=== PATIENT | female | born 1970 | race Caucasian/White ===

== ENCOUNTER → 2018-02-23 10:26 | Outpatient (CLI) | payer OTHER, SELFPAY | PROVIDERS: PCP Family Medicine; Visit Provider Obstetrics & Gynecology | DX: R19.00 Intra-abdominal and pelvic swelling, mass and lump, unspecified site (principal) | CPT/HCPCS: 36415; 86316 ==

== ENCOUNTER → 2018-03-02 14:35 | Outpatient (CLI) | payer OTHER, SELFPAY ==
--- NOTE | 2018-03-02 14:37 | MM_ITS ---
MM Dig SC mamm implant BI CAD CAD Screening COMPARISON: None, this is baseline INDICATION: There is no personal or family history of breast cancer. Patient has bilateral breast implants. TECHNIQUE: Standard CC and MLO images were obtained. R2 CAD reviewed. FINDINGS: Moderate diffuse heterogenic breast densities noted bilaterally. The implants appear intact with no evidence of leakage. There is no suspicious lesion and there are no suspicious microcalcifications. IMPRESSION: Moderate breast density with no suspicious lesion seen BI-RADS Category: 2 Benign Finding(s) RECOMMENDED FOLLOW-UP: 1YR - 1 YEAR FOLLOW-UP (A letter has been sent to the patient regarding results of the study.)
== END ==
PROVIDERS: PCP Family Medicine; Visit Provider Obstetrics & Gynecology
DX: Z12.31 Encounter for screening mammogram for malignant neoplasm of breast (principal)
CPT/HCPCS: 77067

== ENCOUNTER → 2018-04-16 09:47 | Outpatient (CLI) | payer OTHER, SELFPAY ==
[2018-04-16 09:49] LABS: Microscopic, Urine URINE MICROSCOPIC (MICROSCOPIC)
[2018-04-16 10:40] LABS: Basophils # 0.1 K/mm3 (0-0.2); Basophils % 1.4 % (0.1-2.0); Eosinophils # 0.1 K/mm3 (0.0-0.4); Eosinophils % 1.6 % (0.1-12.0); Hematocrit 39.8 % (37.0-47.0); Hemoglobin 12.9 g/dL (12.2-16.2); Lymphocytes # 1.5 K/mm3 (0.7-4.5); Lymphocytes % 25.6 % (10-50); Mean Corpuscular HGB Conc 32.4 g/dL (31.8-35.4); Mean Corpuscular Hemoglobin 29.4 pg (27.0-31.2); Mean Corpuscular Volume 90.7 fl (81-99); Mean Platelet Volume 6.8 fl (7.4-10.4); Monocytes # 0.6 K/mm3 (0.1-1.0); Monocytes % 10.6 % (1.7-9.3); Neutrophils # 3.6 K/mm3 (1.8-7.8); Neutrophils % 60.8 % (37.0-80.0); Platelet Count 301 K/mm3 (142-424); Red Blood Count 4.39 M/mm3 (4.20-5.40); Red Cell Distribution Width 13.2 % (11.5-17.5); White Blood Count 5.8 K/mm3 (4.8-10.8)
[2018-04-16 10:59] LABS: Appearance,Urine CLEAR (Clear); Bilirubin,Urine Negative (Negative); Blood, Urine TRACE-L (Negative); Color,Urine YELLOW (Yellow); Glucose,Urine (UA) Negative (Negative); Ketones,Urine Negative (Negative); Leukocyte Esterase,Urine Negative (Negative); Nitrate,Urine Negative (Negative); PH,Urine 7.5 (5.0-8.5); Protein,Urine Negative (Negative); Specific Gravity, Urine <= 1.005 (1.005-1.030); Urobilinogen,Urine 0.2 EU/dl (0.2)
[2018-04-16 11:20] LABS: Bacteria,Urine Trace /lpf; RBC,Urine Occasional #/hpf (0-3); Squamous Epithelial Cell,Urine Occasional #/hpf (0-5); Urine Pregnancy, HCG Qual. Negative (Negative)
[2018-04-16 12:59] LABS: Alanine Aminotransferase 20 U/L (12-78); Albumin Level 3.6 gm/dL (3.4-5.0); Albumin/Globulin Ratio 1.1 (1.1-1.8); Alkaline Phosphatase 60 U/L (46-116); Anion Gap 11.5 mEq/L (5-15); Aspartate Amino Transferase 12 U/L (15-37); Bilirubin,Total 0.5 mg/dL (0.2-1.0); Blood Urea Nitrogen 14 mg/dL (7-18); Calcium 8.7 mg/dL (8.5-10.1); Carbon Dioxide 29 mmol/L (21.0-32.0); Chloride 104 mmol/L (98-107); Creatinine,Serum 0.69 mg/dL (0.55-1.02); Estimated Glomerular Filt Rate 92 ml/min (>60); GFR (African American) 111 ML/MIN (>60); Globulin 3.2 gm/dl (1.3-3.2); Glucose 75 mg/dL (74-106); Potassium 4.5 mmoL/L (3.5-5.1); Sodium 140 mmol/L (136-145); Total Protein,Serum 6.8 gm/dL (6.4-8.2)
== END ==
PROVIDERS: Visit Provider Obstetrics & Gynecology
DX: Z01.818 Encounter for other preprocedural examination (principal); N93.8 Other specified abnormal uterine and vaginal bleeding; D25.9 Leiomyoma of uterus, unspecified; R19.00 Intra-abdominal and pelvic swelling, mass and lump, unspecified site
CPT/HCPCS: 36415; 80053; 81001; 81025; 85025

== ENCOUNTER 2018-04-21 06:06 | Inpatient (IN) ==
--- NOTE | 2018-04-21 06:42 | Progress Note ---
[facility] Anesthesia Checklist - Patient Identification Patient Identification: Arm Band, Verbal (Name & ) - Structural Data Admitted From: Home Planned Operative Procedure/s: JANICE, BSO Consent for Planned Operative Procedure(s) Verified: Yes Verified Documents: Surgical Consent, History and Physical - NPO Status Verified Time NPO: 00:00 - Chart Verification Results Verified: CBC, BMP, HCG - Additional verifications Patient : No Anesthesia Reactions: No - Airway Assessment C-Spine Mobility Assessed: Yes TMJ Mobility Assessed: Yes Dentition: Good Dentition - Neurological Assessment Level of Consciousness: Awake Hx Seizures: No Numbness or tingling in extremities: No - Anesthesia Plan Anesthesia Risk discussed: Yes Anesthesia Plan: Verified ASA Class: I Anesthesia Type: General [facility] History I have reviewed the patient's past medical history: Yes Medical History: Reports:: Kidney Stones Denies:: Cancer, Diabetes Mellitus Type 1, Diabetes Mellitus Type 2, Internal Pacemaker, MRSA, Seizures Other Medical History: Reports: Other (Obesity,). Denies: Blood Transfusion R eaction Other Surgeries: Yes: Other (Breast augmentation). No: Pacemaker Amputation: No Fractures: No - *Social History Educational Level: Attended College Smoking Status: Never smoker Alcohol Intake: never Alcohol Intake Frequency:: a few times a week Substance Use Type: denies use Occupational Status: employed Housing: house Household Members: spouse - Psychiatric History Expresses thoughts of harming self/others: None Suicide Plan Description: No Plan *Family Hx:: Coronary Artery Disease, Hypertension, Stroke
--- NOTE | 2018-04-21 09:38 | Operative Note ---
Date of procedure: 04/21/18 Pre-op Diagnosis:: 1. Dysfunctional uterine bleeding. 2. Leiomyomata uteri. Post-op Diagnosis:: 1. Dysfunctional uterine bleeding. 2. Leiomyomata uteri. Procedure performed:: Total abdominal hysterectomy and bilateral salpingectomies. Surgeon:: Darrel Staton MD Pulp Operator(s):: STACI Hensley PARTNER CCO:: Vish Nielson Anesthesia: GETA Estimated blood loss (mL): 300 Operative findings:: Leiomyomata uteri Operative note:: After the patient was prepped and draped in usual fashion and general anesthesia was administered, a low Pfannenstiel incision was made across the midline, and the fat and fascia were in the usual fashion, bleeders being clamped and coagulated along the way. The peritoneum was entered with Metzenbaum scissors, and extended above and below. The upper abdomen was explored and found to be normal. A self-retaining Loraine retractor with bladder blade was placed. The uterus was brought up out of the pelvis. It was significantly enlarged, and rife with multiple pedunculated and intramural leiomyomata. This distorted the adnexa, but both ovaries appeared normal except for small (less than 2 cm) hemorrhagic cysts on the distal pole of each ovary. The round ligament on either side was Sarah clamped, cut, and Senthil suture with #1 Vicryl, and the bladder peritoneum was sharply and bluntly dissected free. The ovarian pedicles were crossclamped and cut, thus initially leaving both adnexa in situ. These pedicles were Senthil sutured, and then free tied with #1 Vicryl. The uterine vessels, the cardinal and uterosacral ligaments were individually, bilaterally, Senthil clamped, cut, and Senthil suture with #1 Vicryl. Visualizati on was difficult because of the size and distortion of the uterus, and it was elected to remove the body of the uterus from the cervix, which was done with a scalpel. There was no undue bleeding from this part of the procedure. The cervix was then grasped with Juan clamps, and the vagina was entered anteriorly with a knife, with the cervix being excised with Jose F scissors. Juan clamps were used to tent up the vaginal cuff, which was closed with a running locked suture of #1 Vicryl. Irrigation was carried out, and there was no undue bleeding or other pathology. Each tube was grasped with a [employer] clamp, and the mesosalpinx on each side was crossclamped with a Verenice clamp, and the tube excised with Metzenbaum scissors. These pedicles were Senthil sutured with 2-0 Vicryl. There was no undue bleeding. The bilateral small hemorrhagic ovarian cyst were punctured and oversewn with 3-0 Vicryl. Both ovaries remain in situ. Interceed was placed over each ovary to obviate the formation of adhesions. The peritoneum was then grasped with 3 Verenice clamps, and closed with a running semi-locked suture of 0 Vicryl. The muscle was approximated with a running unlocked suture of 2-0 Vicryl. In the upper portion of the rectus muscle repair, small defect was noted. Gelfoam was placed within the defect to enhance the repair, which was subsequently accomplished. The fascia was closed with a running lock suture of #1 Vicryl. The subcutaneous fat and Soraya's fascia were closed with a running unlocked suture of 2-0 Vicryl. The skin was closed with a subcuticular suture of 3-0 Vicryl, and appropriately dressed. The urine was clear in the Coyle catheter. The sponge and needle counts correct. Estimated blood loss was 300 cc. The patient tolerated the procedure well, was taken to PACU in excellent condition. She will be admitted postoperatively. Condition: stable Disposition: PACU Specimens:: 1. Uterus (supracervical). 2. Cervix. 3. Bilateral fallopian tubes. Complications:: None
--- NOTE | 2018-04-21 09:48 | Progress Note ---
[facility] Anesthesia Record Part II Discharge Time: 10:15 Destination: 2nd floor PACU nurse assessment reviewed?: Yes Patient Condition:: Good Anesthesia Complications:: None
--- NOTE | 2018-04-21 09:48 | Progress Note ---
[facility] Anesthesia Record Part I Intake, IV Amount: 1,700 Estimated blood loss (mL): 300 Urine output (mL): 200 Blood Pressure: 142/72 SaO2: 95 Pulse Rate: 63 Respiratory Rate: 16 Temperature: 97.5 F Patient is:: Drowsy, Stable Stable to PACU at:: 09:45
[2018-04-21 11:52] LABS: Hematocrit 35.2 % (37.0-47.0); Hemoglobin 11.4 g/dL (12.2-16.2)
--- NOTE | 2018-04-21 11:57 | Progress Note ---
Internal Medicine - PN: Subj *Date: 04/21/18 *Time: 11:57 Interval history: This is day of surgery. The patient is afebrile. Vital signs stable. Wound clean. Abdomen soft. Surgery has been explained to the patient. Impression: Stable. Exam Vital signs and Labs for Last 24 Hours: Temp Pulse Resp BP Pulse Ox 97.8 F 60 18 115/64 97 04/21/18 10:20 04/21/18 10:20 04/21/18 11:37 04/21/18 10:20 04/21/18 10:20 Laboratory Results - last 24 hr 04/21/18 11:23: Hgb 11.4 L, Hct 35.2 L I & O for Last 24 hours: Intake & Output 04/18/18 04/19/18 04/20/18 04/21/18 11:59 11:59 11:59 11:59 Intake Total 1825 / 1825 Output Total 100 / 100 Balance 1725 / 1725 Weight 180 lb
--- NOTE | 2018-04-21 13:21 | Pharmacy Consult Notes ---
[facility] Pharmacy VTE Monitoring - Patient Demographics Admission date: 04/21/18 Report Date: 04/21/18 Time: 13:21 Allergies/Adverse Reactions: Patient Allergies ibuprofen Adverse Reaction (Verified 04/21/18 11:26) Height: 1.6 m Weight: 81.647 kg - VTE Risk Labs: VTE Related Lab Results Hgb 11.4 g/dL (12.2-16.2) L 04/21/18 11:23 Hct 35.2 % (37.0-47.0) L 04/21/18 11:23 - Prophylaxis VTE Prophylaxis Ordered?: Yes Types of VTE Prophylaxis: IPCS Thigh High, Pharmacological Location of Applied Device: Bilateral Lower Extremeties Pharmacologic Type: Enoxaparin
--- NOTE | 2018-04-22 08:55 | Progress Note ---
Internal Medicine - PN: Subj *Date: 04/22/18 *Time: 08:54 Interval history: This is postop day #1. The patient is afebrile. Vital signs stable. Wound clean. Abdomen soft. Hemoglobin 11.4 g. She has had some difficulty with nausea, but her Coyle is out and she has voided well. I am going to keep her on clear liquids for now and ambulate today. Exam Vital signs and Labs for Last 24 Hours: Temp Pulse Resp BP Pulse Ox 97.8 F 73 16 112/73 98 04/22/18 02:55 04/22/18 02:55 04/22/18 02:55 04/22/18 02:55 04/22/18 04:55 Laboratory Results - last 24 hr 04/21/18 07:30: Urine Color Yellow, Urine Appearance Clear, Urine pH 6.5, Ur Specific [place] 1.010, Urine Protein Negative, Urine Glucose (UA) Negative, Urine Ketones Negative, Urine Blood Trace-i, Urine Nitrate Negative, Urine Bilirubin Negative, Urine Urobilinogen 0.2, Ur Leukocyte Esterase Negative, Urine RBC Occasional, Urine WBC None, Ur Squamous Epith Cells Occasional, Urine Bacteria Trace 04/21/18 11:23: Hgb 11.4 L, Hct 35.2 L I & O for Last 24 hours: Intake & Output 04/19/18 04/20/18 04/21/18 04/22/18 11:59 11:59 11:59 11:59 Intake Total 5 / 5 1107 / 1107 Output Total 300 / 300 800 / 800 Balance 1765 / 1765 307 / 307 Weight 180 lb 180 lb
--- NOTE | 2018-04-23 07:00 | Progress Note ---
Internal Medicine - PN: Subj *Date: 04/23/18 *Time: 06:56 Interval history: PO day #2: Pt is afebrile now, but had oral temp of 99.9 during the night..Tylenol administered. Since then has passed flatus and feels better..VS normal.Abdomen soft. Wound clean.Impression: resolving mild post-op ileus--will advance diet today. Exam Vital signs and Labs for Last 24 Hours: Temp Pulse Resp BP Pulse Ox 99.6 F 77 18 132/72 93 L 04/23/18 03:10 04/23/18 03:10 04/23/18 03:10 04/23/18 03:10 04/23/18 03:10 I & O for Last 24 hours: Intake & Output 04/20/18 04/21/18 04/22/18 04/23/18 11:59 11:59 11:59 11:59 Intake Total 2065 / 2065 1107 / 1107 4468 / 4468 Output Total 300 / 300 1050 / 1050 1350 / 1350 Balance 1765 / 1765 57 / 57 3118 / 3118 Weight 180 lb 180 lb
[2018-04-23 09:30] LABS: Basophils % 0.3 % (0.1-2.0); Eosinophils % 0.5 % (0.1-12.0); Hematocrit 28.7 % (37.0-47.0); Hemoglobin 9.3 g/dL (12.2-16.2); Lymphocytes # 1.3 K/mm3 (0.7-4.5); Lymphocytes % 17.6 % (10-50); Mean Corpuscular HGB Conc 32.3 g/dL (31.8-35.4); Mean Corpuscular Hemoglobin 29.4 pg (27.0-31.2); Mean Corpuscular Volume 91.2 fl (81-99); Mean Platelet Volume 7.7 fl (7.4-10.4); Monocytes # 0.6 K/mm3 (0.1-1.0); Monocytes % 7.9 % (1.7-9.3); Neutrophils # 5.3 K/mm3 (1.8-7.8); Neutrophils % 73.7 % (37.0-80.0); Platelet Count 244 K/mm3 (142-424); Red Blood Count 3.15 M/mm3 (4.20-5.40); Red Cell Distribution Width 13.2 % (11.5-17.5); White Blood Count 7.2 K/mm3 (4.8-10.8)
--- NOTE | 2018-04-24 06:29 | Progress Note ---
Internal Medicine - PN: Subj *Date: 04/24/18 *Time: 06:28 Interval history: This is postop day #3. The patient is afebrile. Her vital signs are stable. Wound clean. Abdomen soft. Passing flatus. Voiding well. She will be discharged today. Exam Vital signs and Labs for Last 24 Hours: Temp Pulse Resp BP Pulse Ox 98.9 F 65 16 130/75 94 L 04/24/18 03:15 04/24/18 03:15 04/24/18 03:15 04/24/18 03:15 04/24/18 03:15 Laboratory Results - last 24 hr 04/23/18 09:06: WBC 7.2, RBC 3.15 L, Hgb 9.3 L, Hct 28.7 L, MCV 91.2, MCH 29.4, MCHC 32.3, RDW 13.2, Plt Count 244, MPV 7.7, Neut % (Auto) 73.7, Lymph % (Auto) 17.6, [place] % (Auto) 7.9, Eos % (Auto) 0.5, Baso % (Auto) 0.3, Neut # (Auto) 5.3, Lymph # (Auto) 1.3, [place] # (Auto) 0.6, Eos # (Auto) 0.0, Baso # (Auto) 0.0 I & O for Last 24 hours: Intake & Output 04/21/18 04/22/18 04/23/18 04/24/18 11:59 11:59 11:59 11:59 Intake Total 5 / 2065 1107 / 1107 4468 / 4468 1345 / 1345 Output Total 300 / 300 1050 / 1050 2250 / 2250 1200 / 1200 Balance 1765 / 1765 57 / 57 2218 / 2218 145 / 145 Weight 180 lb 180 lb
--- NOTE | 2018-04-24 06:33 | Discharge Summary ---
General - General Admission date:: 04/21/18 Discharge date: 04/24/18 (This 47-year-old white female was admitted for definitive treatment of dysfunctional uterine bleeding and leiomyomata uteri. On the date of admission, she was taken to the operating room where she underwent a total abdominal hysterectomy and bilateral salpingectomies, without complications. Her ovaries remain in situ. , the patient is done well overall. She did experience a mild postop ileus on postop day #1, but this is now cleared and she remains afebrile. Her hemoglobin on admission was 12.9 g; post operatively it is 9.9 g, but she is clinically stable. She is eating and ambulating, and passing flatus. Her wound is clean. Her abdomen is soft. She is discharged home on third postoperative day on Toradol 10 mg p.o. every 6 hours as needed pain (#20). She is given appropriate instructions as to diet, exercise, and wound care, and she is to return to the office in 2 weeks for follow-up.) Objective Vital signs: Temp Pulse Resp BP Pulse Ox 98.9 F 65 16 130/75 94 L 04/24/18 03:15 04/24/18 03:15 04/24/18 03:15 04/24/18 03:15 04/24/18 03:15 Results Labs on day of discharge: Labs from last 24 hours 04/23/18 09:06 WBC 7.2 RBC 3.15 L Hgb 9.3 L Hct 28.7 L MCV 91.2 MCH 29.4 MCHC 32.3 RDW 13.2 Plt Count 244 MPV 7.7 Neut % (Auto) 73.7 Lymph % (Auto) 17.6 [place] % (Auto) 7.9 Eos % (Auto) 0.5 Baso % (Auto) 0.3 Neut # (Auto) 5.3 Lymph # (Auto) 1.3 [place] # (Auto) 0.6 Eos # (Auto) 0.0 Baso # (Auto) 0.0 Discharge Plan - Patient Discharge Instructions - Follow up Plan Home Medications: Home Medications Medication Instructions Recorded Confirmed Type No Known Home Medications 03/09/18 04/21/18 History Prescriptions/Medication Reconciliation: No Action No Known Home Medications
== END 2018-04-24 09:45 | disposition home or self-care (01) ==
LOC: OR 06:06 → OB 11:01
PROVIDERS: ADMIT Obstetrics & Gynecology; ATTEND Obstetrics & Gynecology

== ENCOUNTER → 2019-03-18 12:46 | Outpatient (CLI) | payer OTHER, SELFPAY ==
--- NOTE | 2019-03-18 12:53 | US_ITS ---
PROCEDURE: US TRANSVAGINAL CLINICAL INDICATION: ADNEXAL MASS, PELVIC PAIN Possible right ovarian cyst/mass COMPARISON: No exams were available for comparison FINDINGS: There are post hysterectomy changes. Right ovary is 2.2 x 1.3 cm and has an unremarkable appearance. The left ovary is enlarged with multiple cysts. The left ovary measures 6 x 4 cm. The largest cyst is 4.7 x 3.4 cm. No cul-de-sac fluid evident. No significant thickening of the cyst wall. No mural nodules demonstrated IMPRESSION: Cystic involvement of the left ovary with multiple cysts present the largest at 6 x 4 cm. Suggest follow-up to confirm resolution Dictated by: Attila Costa MD 03/19/2019 06:07 Electronically signed by Attila Costa MD in [facility] 03/19/2019 06:07
== END ==
PROVIDERS: PCP Family Medicine; Visit Provider Obstetrics & Gynecology
DX: R10.2 Pelvic and perineal pain (principal); N94.89 Other specified conditions associated with female genital organs and menstrual cycle
CPT/HCPCS: 76830

== ENCOUNTER → 2019-03-26 09:43 | Outpatient (CLI) | payer OTHER, SELFPAY ==
[2019-03-27 20:05] LABS: Cancer Antigen (CA) 125 4.5 U/mL (0.0-38.1)
== END ==
PROVIDERS: Visit Provider Obstetrics & Gynecology
DX: R10.2 Pelvic and perineal pain (principal)
CPT/HCPCS: 36415; 86316

== ENCOUNTER → 2019-04-01 09:05 | Outpatient (CLI) | payer OTHER, SELFPAY ==
--- NOTE | 2019-04-01 09:18 | MM_ITS ---
PROCEDURE: MM DIG SC MAMM IMPLANT BI CAD Patient Age:48Y CLINICAL INDICATION: screening mamm with implants 48-year-old. Bilateral breast implants, no hormones. No new complaints. Noncontributory family history COMPARISON: SCIMPBI MM Dig SC mamm implant BI CAD from 03/02/2018 TECHNIQUE: Ruddy technique utilized. CC and MLO images were obtained both including implant and with implant displaced to view the overlying breast more optimal. R2 CAD reviewed. Breast implants inherently decrease sensitivity of mammography somewhat as areas can be obscured FINDINGS: There were were some technical difficulties the viewing the study in new PAC system in part due to the implants. Moderately dense breast tissue overlying both implants but Left breast but stable appearance no new findings of significant concern Right breast. Areas of increased density which I believe merely reflect summation shadows noted on right, but would suggest follow-up in 4-6 month to assure stability Area of increased density upper-outer quadrant right breast labeled B on today's CC view is most likely a summation shadow-this area labeled B Focal accentuated density at the inferior right breast on 1 of today's MLO view.-this labeled A..-it seems to dissipate on the other MLO view IMPRESSION: Bilateral breast implants. Moderately dense breast tissue along with bilateral breast implants do decrease sensitivity of mammography of somewhat in this patient Areas of minimal focal density seen on one view dissipate on another and I believe her merely summation shadows but would suggest a follow-up RIGHT mammogram in 4-6 months to better establish and assure stability BI-RAD Category: 3 Probably Benign Finding Short Term Follow-up FOLLOW-UP: 4M -6 Month Follow-up right breast (A letter has been sent to the patient regarding results of the study.) Dictated by: Juan Chen MD 04/14/2019 09:40 Electronically signed by Juan Chen MD in [facility] 04/14/2019 09:40
== END ==
PROVIDERS: PCP Family Medicine; Visit Provider Obstetrics & Gynecology
DX: Z12.31 Encounter for screening mammogram for malignant neoplasm of breast (principal)
CPT/HCPCS: 77067

== ENCOUNTER → 2019-04-13 13:27 | Outpatient (CLI) | payer OTHER, SELFPAY ==
--- NOTE | 2019-04-13 13:28 | US_ITS ---
PROCEDURE: US TRANSVAGINAL CLINICAL INDICATION: pelvic pain Four week follow-up ovarian cyst COMPARISON: US TRANSVAGINAL from 03/18/2019 FINDINGS: Status post hysterectomy. The right ovary is 2.5 x 2.6 cm and contains a 1.3 cm cyst. There is a small echogenic nodule in the right ovary at 5 mm The left ovary is 3.9 x 3 cm and contains a 3.2 x 2.8 cm cyst previously at 4.7 x 3.4 cm. Previously there was an additional cyst involving the left over which is no longer apparent No cul-de-sac fluid evident. IMPRESSION: 1. Dominant left ovarian cyst is slightly smaller measuring 3.9 x 3 cm previously 4.7 x 3.4 cm. 2. There is a small right ovarian cyst now present 1.3 cm. A 5 mm echogenic nodule is noted in the right ovary. Continued follow-up suggested. Dictated by: Attila oCsta MD 04/13/2019 18:09 Electronically signed by Attila Costa MD in [facility] 04/13/2019 18:09
== END ==
PROVIDERS: PCP Family Medicine; Visit Provider Obstetrics & Gynecology
DX: R10.2 Pelvic and perineal pain (principal)
CPT/HCPCS: 76830

== ENCOUNTER → 2020-01-06 14:27 | Outpatient (CLI) | payer OTHER, SELFPAY ==
--- NOTE | 2020-01-06 14:27 | MM_ITS ---
PROCEDURE: MM DIG MAMM DX BI IMPLANT CAD Digital Breast Tomosynthesis Included CLINICAL INDICATION: Dx Bilateral Mammogram- f/u on abmormal Mamm COMPARISON: MG SCIMPBI MM Dig SC mamm implant BI CAD from 03/02/2018 MG MM DIG SC MAMM IMPLANT BI CAD from 04/01/2019 TECHNIQUE: Standard CC and MLO images and 3D Tomosynthesis was obtained. R2 CAD reviewed. FINDINGS: There is average to dense fibroglandular tissue. There are bilateral subpectoral implants. Previously noted areas of asymmetry in the right breast are not readily duplicated on today's exam. No malignant appearing mass or malignant-appearing microcalcification.. Benign-appearing calcifications are present in lateral aspect of the left breast. The implants appear intact. IMPRESSION: BI-RAD Category: 2 Benign Finding(s) FOLLOW-UP: 1YR 1 Year Follow-up (A letter has been sent to the patient regarding results of the study.) Dictated b Attila Costa MD 01/14/2020 07:44 Attila Costa MD in [facility] 01/14/2020 07:44
== END ==
PROVIDERS: PCP Family Medicine; Visit Provider Obstetrics & Gynecology
DX: R92.8 Other abnormal and inconclusive findings on diagnostic imaging of breast (principal)
CPT/HCPCS: 77062; 77066; G0279

== ENCOUNTER → 2021-04-04 15:14 | Outpatient (CLI) | payer OTHER, SELFPAY ==
--- NOTE | 2021-04-04 15:19 | US_ITS ---
PROCEDURE: US TRANSVAGINAL CLINICAL INDICATION: pelvic pain, pain with intercourse COMPARISON: US US TRANSVAGINAL from 04/13/2019 FINDINGS: The patient is post hysterectomy. The right ovary is normal in size. Again noted is an echogenic nodule within the right ovary measuring 0.7 by 0.6 by 0.8 cm where as previously it measured 0.5 x 0.4 by 0.4 cm on the previous study 04/13/2019. There is a large simple cyst left ovary measuring 3.2 x 2.4 by 3.2 cm. It is similar in size to the previous study. There is blood flow to both ovaries. There is no cul-de-sac fluid. IMPRESSION: Large left ovarian cyst which could possibly be the cause for the patient's symptoms, slight interval increase in size of the echogenic nodule right ovary, possibly follow-up CT scan of the pelvis should be considered for better evaluation. Dictated by: Dr. Silvano Moore MD 04/06/2021 12:32 Dr. Silvano Moore MD in [facility] 04/06/2021 12:32
--- NOTE | 2021-04-04 15:19 | MM_ITS ---
PROCEDURE INFORMATION: Exam: MG Bilateral Screening 3D Mammography Exam date and time: 04/04/2021 3:19 PM Age: 50 years old Clinical indication: Screening mammogram TECHNIQUE: Imaging protocol: Bilateral screening tomosynthesis and 2D mammography including computer-aided detection (CAD) when performed. COMPARISON: 1. MG MM DIG MAMM DX BI IMPLANT CAD 01/06/2020 2:44 PM 2. MG MM DIG SC MAMM IMPLANT BI CAD 04/01/2019 9:21 AM 3. MG SCIMPBI MM Dig SC mamm implant BI CAD 03/02/2018 2:45 PM FINDINGS: MAMMOGRAPHY: Breast composition: The breast tissue is heterogeneously dense, which may obscure small masses. Mass: None. Architectural distortion: No new or suspicious architectural distortion. Calcifications: No new or suspicious calcifications are present Asymmetric density: No new or suspicious asymmetric density is present Skin thickening: None. Axillary adenopathy: None. Implants: Retropectoral augmentation implants are present. IMPRESSION: No mammographic evidence of malignancy. Recommend annual screening mammography unless otherwise clinically indicated. ASSESSMENT: BI-RADS category 2: Benign
== END ==
PROVIDERS: PCP Family Medicine; Visit Provider Obstetrics & Gynecology
DX: R10.2 Pelvic and perineal pain (principal); Z12.31 Encounter for screening mammogram for malignant neoplasm of breast
CPT/HCPCS: 76830; 77063; 77067

== ENCOUNTER → 2021-04-16 14:29 | Outpatient (CLI) | payer OTHER, SELFPAY ==
[2021-04-16 14:42] LABS: Basophils # 0.1 K/mm3 (0-0.2); Basophils % 1.2 % (0.1-2.0); Eosinophils # 0.1 K/mm3 (0.0-0.4); Eosinophils % 1.9 % (0.1-12.0); Hematocrit 44.8 % (37.0-47.0); Hemoglobin 14.6 g/dL (12.2-16.2); Lymphocytes # 1.7 K/mm3 (0.7-4.5); Lymphocytes % 31.9 % (10-50); Mean Corpuscular HGB Conc 32.5 g/dL (31.8-35.4); Mean Corpuscular Hemoglobin 29.6 pg (27.0-31.2); Mean Corpuscular Volume 91.1 fl (81-99); Mean Platelet Volume 9.2 fl (7.4-10.4); Monocytes # 0.4 K/mm3 (0.1-1.0); Monocytes % 8.3 % (1.7-9.3); Neutrophils % 56.7 % (37.0-80.0); Platelet Count 392 K/mm3 (142-424); Red Blood Count 4.92 M/mm3 (4.20-5.40); Red Cell Distribution Width 13.3 % (11.5-17.5); White Blood Count 5.2 K/mm3 (4.8-10.8)
[2021-04-16 14:48] LABS: Alanine Aminotransferase 16 U/L (12-78); Albumin Level 4.6 g/dl (3.5-5.0); Albumin/Globulin Ratio 1.5 (1.1-1.8); Alkaline Phosphatase 72 U/L (38-126); Anion Gap 13.6 mEq/L (5-15); Aspartate Amino Transferase 21 U/L (14-36); Bilirubin,Total 0.6 mg/dl (0.2-1.3); Blood Urea Nitrogen 10 mg/dl (7-17); Calcium 9.6 mg/dl (8.4-10.2); Carbon Dioxide 26 mmol/L (22.0-30.0); Chloride 104 mmol/L (98-107); Chol/HDL Ratio 2.7 (1-3.5); Cholesterol 211 mg/dl (140-200); Estimated Glomerular Filt Rate 106 ml/min (>60); GFR (African American) 129 ML/MIN (>60); Glucose 99 mg/dl (74-100); HDL Cholesterol 79 mg/dl (40-60); Potassium 4.6 mmoL/L (3.5-5.1); Sodium 139 mmol/L (136-145); Total Protein,Serum 7.6 g/dl (6.3-8.2); Triglycerides 70 mg/dl (30-150); VLDL Cholesterol 14 mg/dL (0-40)
[2021-04-16 14:58] LABS: Direct LDL Cholesterol 108.59 mg/dL (100-129)
[2021-04-16 15:06] LABS: 25-OH Vitamin D, Total 49.2 ng/mL (30-100)
[2021-04-16 15:21] LABS: Thyroid Stimulating Hormone 1.44 uIU/mL (0.465-4.68)
== END ==
PROVIDERS: Visit Provider Family Medicine
DX: R53.83 Other fatigue (principal); E55.9 Vitamin D deficiency, unspecified
CPT/HCPCS: 80053; 80061; 82306; 84443; 85025

== ENCOUNTER → 2021-05-25 07:50 | Outpatient (CLI) | payer OTHER, SELFPAY ==
--- NOTE | 2021-05-25 07:58 | CT_ITS ---
PROCEDURE: CT ABDOMEN PELVIS WO CON CLINICAL INDICATION: LLQ pain COMPARISON: US US TRANSVAGINAL from 04/04/2021 TECHNIQUE: Axial images obtained with sagittal and coronal reformats. All CT scans at the facility use one or more dose reduction, viz: automated exposure control, ma/kV adjustment per patient size (including targeted exams where dose is matched to indication, i.e. head), or iterative reconstruction technique. FINDINGS: LOWER THORAX: Bilateral breast implants are noted. ABDOMEN & PELVIS: The liver, spleen, adrenal glands, pancreas, and kidneys have an unremarkable appearance. No renal or ureteral calculi. No hydronephrosis. Unremarkable appearing gallbladder. No intestinal obstruction or free air. No evidence of appendicitis. There is colonic diverticulosis. No evidence of diverticulitis. Status post hysterectomy. Small left ovarian cyst suspected at 1.3 cm. The right ovary has an unremarkable appearance. No cul-de-sac fluid. No acute bony findings. Probable small bone island right femoral head IMPRESSION: No acute finding. Decrease in size of left ovarian cyst compared to the previous ultrasound with a small cyst on the left ovary measuring approximately 1.3 cm. Mild colonic diverticulosis. No evidence of diverticulitis. Dictated by: Attila Costa MD 05/26/2021 08:51 Attila Costa MD in [facility] 05/26/2021 08:51
== END ==
PROVIDERS: PCP Family Medicine; Visit Provider Family Medicine
DX: R10.32 Left lower quadrant pain (principal)
CPT/HCPCS: 74176

== ENCOUNTER → 2021-07-31 11:14 | Outpatient (CLI) | payer MEDICAID, SELFPAY ==
[2021-07-31 12:19] LABS: Erythrocyte Sedimentation Rate 19 mm/hr (0-20)
[2021-07-31 13:53] LABS: Vitamin B12 509 pg/mL (239-931)
[2021-08-07 00:07] LABS: Vitamin B1 108.3 nmol/L (66.5-200.0)
[2021-09-09 20:59] LABS: Antinuclear Antibodies (ANA) Negative
== END ==
PROVIDERS: Visit Provider Specialist
DX: R41.3 Other amnesia (principal)
CPT/HCPCS: 36415; 82607; 82746; 84425; 85651; 86038

== ENCOUNTER → 2021-08-03 14:13 | Outpatient (CLI) | payer MEDICAID, SELFPAY ==
--- NOTE | 2021-08-03 14:13 | MR_ITS ---
FINAL REPORT CLINICAL HISTORY: memory loss, headaches x's 3 months. FINDINGS: Multi planar MR imaging was obtained through the brain without contrast. The midline structures appear intact. There is no evidence of Chiari malformation. On T2 and flair axial images there is some minimal abnormal signal within the deep white matter of the frontal lobes. There is no cortical signal abnormality. On diffusion-weighted images there is no evidence of restricted diffusion. The visualized paranasal sinuses demonstrate normal signal voids. The seventh and eighth nerve root complexes are intact. IMPRESSION: Minimal changes of chronic microvascular ischemia. Reviewed, Interpreted and Dictated by Walter Rosenbaum MD Transcribed by Loly Hough Authenticated by Walter Rosenbaum MD on 08/03/2021 03:40:38 PM [facility]
== END ==
PROVIDERS: PCP Family Medicine; Visit Provider Specialist
DX: R41.3 Other amnesia (principal)
CPT/HCPCS: 70551

== ENCOUNTER → 2021-08-23 08:44 | Outpatient (CLI) | payer MEDICAID, SELFPAY | PROVIDERS: PCP Family Medicine; Visit Provider Specialist | DX: G47.30 Sleep apnea, unspecified (principal); R06.83 Snoring | CPT/HCPCS: 95806 ==

== ENCOUNTER → 2021-12-17 10:16 | Outpatient (CLI) | payer MEDICAID, SELFPAY | PROVIDERS: PCP Family Medicine; Visit Provider Family Medicine | DX: U07.1 COVID-19 (principal) | CPT/HCPCS: C9803; U0003; U0005 ==

== ENCOUNTER 2023-01-24 11:44 | Emergency (ER) | payer MEDICAID, SELFPAY ==
[2023-01-24 11:46] VITALS: BP 128/86; PULSE 77; RESP 18; TEMP 36.8; O2SAT 98; BMI 34.9
--- NOTE | 2023-01-24 12:14 | EXP.UTC ---
Discharge Plan Disposition Patient Disposition: Home, Self-Care Condition: Good Prescriptions Prescriptions: New cephalexin 500 mg capsule 500 mg PO QID 7 Days Qty: 28 0RF prednisone 10 mg tablets,dose pack See Rx Instructions .ROUTE .COMPLEX Qty: 21 0RF Rx Instructions: Take as directed on package instructions No Action estradiol [Estrace] 0.01 % (0.1 mg/gram) cream 1 g vaginal QHS Qty: 42.5 2RF methylprednisolone [Medrol (Roger)] 4 mg tablets,dose pack See Rx Instructions PO PER PKG DIR Qty: 21 0RF Rx Instructions: PO PER PKG DIR azithromycin 500 mg tablet 500 mg PO DAILY 3 Days Qty: 3 0RF Referrals Follow up/Referrals: Provider,Referral, MD [Primary Care Provider] - See instructions Activity Restrictions/Add. Instructions Additional Instructions/Restrictions: Calamine lotion may help to dry the rash Oatmeal bathes may help with itching and drying of the rash Follow up with your Family Doctor if no improvement or any worsening of symptoms Return if needed Straight to ER if any life threatening symptoms Clinical Impressions Clinical Impression: Rash Instructions Patient Instructions: Summertime Rashes: Poison [place], [place], and [place], DI for Rash, Prednisone Discharge ED Provider: Roberta Geiger [facility] [place] General Stated complaint: rash Mode of Arrival: Ambulatory Source of Information: Patient Limitations: No Limitations Time Seen by Provider: 01/24/23 12:15 Description of Symptoms (Recalled from Triage Doc. by RN): Patient reports having a rash x 1 week. HEENT Symptoms (Recalled from RN notes): No Resp Symptoms (Recalled from RN notes): No Skin Symptoms (Recalled from RN notes): Yes MS Symptoms (Recalled from RN notes): No Functional Status (Recalled from RN notes): wnl History of Present Illness Provider Complaint: Patient states that she was mowing about a week and half ago and she knocked down a poke weed plant and it landed across her arms States that she started breaking out in rash on both arms and she went on to [place] for vacation and seen a Doctor there that give her a shot and some paste to put on it States that it is better now but worried it may be infected it is red and warm on the bend of her left arm Related Data Previous Rx's Medication Instructions Recorded estradiol 0.01% (0.1 mg/gram) 1 g vaginal QHS #42.5 grams 04/09/21 vaginal cream (Estrace) azithromycin 500 mg tablet 500 mg PO DAILY 3 days #3 tabs 12/25/21 methylprednisolone 4 mg tablets in See Rx Instructions PO PER PKG DIR 12/25/21 a dose pack (Medrol (Roger)) #21 tabs cephalexin 500 mg capsule 500 mg PO QID 7 days #28 caps 01/24/23 prednisone 10 mg tablets in a dose See Rx Instructions PO .COMPLEX 01/24/23 pack #21 tabs Allergies Allergy/AdvReac Type Severity Reaction Status Date / Time ibuprofen AdvReac Verified 09/06/21 08:15 Worker's Comp Is this a Worker's Comp case?: No [facility] Disclaimer: The information contained in this section may have been updated after the patient was seen, as this information can be updated by other users. Social History Smoking Status: Never smoker alcohol intake: current substance use type: denies use current occupational status: employed Travel in the last 8 weeks: None household members: spouse housing: house current occupational exposures/hazards: No caffeine: Yes ROS Obtained: Yes All systems reviewed & no additional complaints except as documented and Yes Systems reviewed as appropriate & no additional complaints except as documented Constitutional Constitutional: Reports system reviewed and no additional complaints, except as documented and Reports as per HPI ENT Ears, Nose, Mouth, and Throat: Reports system reviewed and no additional complaints, except as documented and Reports as per HPI Cardiovascular Cardiovascular: Reports system reviewed and no additional complaints, except as documented and Reports as per
[2023-01-24 12:54] VITALS: BP 128/86; PULSE 77; RESP 18; TEMP 36.8; O2SAT 98
== END 2023-01-24 12:55 | disposition home or self-care (01) ==
PROVIDERS: Emergency Provider Nurse Practitioner
DX: L03.114 Cellulitis of left upper limb (principal); L25.5 Unspecified contact dermatitis due to plants, except food
CPT/HCPCS: 96372; 99204; 99212; G0463

== ENCOUNTER 2023-04-27 19:26 | Emergency (ER) | payer MEDICAID, SELFPAY ==
--- NOTE | 2023-04-27 19:35 | PC.NURSE ---
in room talking with patient at this time.
--- NOTE | 2023-04-27 19:40 | CT_ITS ---
PROCEDURE INFORMATION: Exam: CT Abdomen And Pelvis With Contrast Exam date and time: 04/27/2023 8:11 PM Age: 52 years old Clinical indication: Abdominal pain; Generalized; Additional info: Llq/ruq pain/diarrhea/reported diverticulosis TECHNIQUE: Imaging protocol: Computed tomography of the abdomen and pelvis with contrast. Radiation optimization: All CT scans at this facility use at least one of these dose optimization techniques: automated exposure control; mA and/or kV adjustment per patient size (includes targeted exams where dose is matched to clinical indication); or iterative reconstruction. Contrast material: ISOVUE; Contrast volume: 75 ml; Contrast route: IV; REPORTING DATA: Count of CT and Cardiac NM exams in prior 12 months: This patient has received 0 known CTs and 0 known cardiac nuclear medicine studies in the 12 months prior to the current study. COMPARISON: CT ABDOMEN PELVIS WO CON 05/25/2021 7:58 AM FINDINGS: Tubes, catheters and devices: None noted. Lungs: Lung bases appear clear. Heart: No significant coronary calcifications. No cardiomegaly. No significant pericardial effusion. Liver: Normal. No mass. Gallbladder and bile ducts: Normal. No calcified stones. No ductal dilation. Pancreas: Normal. No ductal dilation. Spleen: Normal. No splenomegaly. Adrenal glands: Normal. No mass. Kidneys and ureters: Normal. No hydronephrosis. Stomach and bowel: Unremarkable. No obstruction. No mucosal thickening. Appendix: No evidence of appendicitis. Intraperitoneal space: Unremarkable. No free air. No significant fluid collection. Retroperitoneal space: No significant retroperitoneal inflammatory changes are noted. Vasculature: Unremarkable. No abdominal aortic aneurysm. Lymph nodes: Unremarkable. No enlarged lymph nodes. Urinary bladder: Unremarkable as visualized. Reproductive: Hysterectomy. Bones/joints: Unremarkable. No acute fracture. Soft tissues: Bilateral breast implants. IMPRESSION: 1. No CT evidence of diverticulitis. 2. Hysterectomy. 3. Bilateral breast implants.
[2023-04-27 19:41] VITALS: BP 177/94; PULSE 104; RESP 15; TEMP 37.4; O2SAT 99; BMI 33.5
--- NOTE | 2023-04-27 19:43 | HMH.EDGENADL ---
Discharge Plan Disposition Patient Disposition: Home, Self-Care Chief Complaint: Abdominal Pain Prescriptions Prescriptions: No Action estradiol [Estrace] 0.01 % (0.1 mg/gram) cream 1 g vaginal QHS Qty: 42.5 2RF methylprednisolone [Medrol (Roger)] 4 mg tablets,dose pack See Rx Instructions PO PER PKG DIR Qty: 21 0RF Rx Instructions: PO PER PKG DIR azithromycin 500 mg tablet 500 mg PO DAILY 3 Days Qty: 3 0RF cephalexin 500 mg capsule 500 mg PO QID 7 Days Qty: 28 0RF prednisone 10 mg tablets,dose pack See Rx Instructions .ROUTE .COMPLEX Qty: 21 0RF Rx Instructions: Take as directed on package instructions Referrals Follow up/Referrals: Rajiv Chan MD [Primary Care Provider] - See instructions Activity Restrictions/Add. Instructions Additional Instructions/Restrictions: At this time it was felt you are safe to be discharged home. If new or worsening symptoms please do not hesitate to return the emergency department. If symptoms persist please follow-up with your family doctor as you are able. Clinical Impressions Clinical Impression: Abdominal pain, Diarrhea Instructions Patient Instructions: DI for Acute Abdominal Pain Discharge ED Provider: Jose Manuel [facility] HPI General Chief complaint: Abdominal Pain Stated complaint: abd pain, diarrhea Time Seen by Provider: 04/27/23 19:33 History of Present Illness HPI narrative: Patient is a 52-year-old female with past medical history of previous diverticulitis who presents emergency department for multiple complaints. Patient ate a cheeseburger earlier today at approximate 1 PM, since then she has had episodic left lower quadrant pain, right upper quadrant pain, rigors causing her to present here for continued evaluation. No vomiting. No blood in the stool. Symptoms are refractory to activated charcoal. Surgical history includes previous hysterectomy. Related Data Previous Rx's Medication Instructions Recorded estradiol 0.01% (0.1 mg/gram) 1 g vaginal QHS #42.5 grams 04/09/21 vaginal cream (Estrace) azithromycin 500 mg tablet 500 mg PO DAILY 3 days #3 tabs 12/25/21 methylprednisolone 4 mg tablets in See Rx Instructions PO PER PKG DIR 12/25/21 a dose pack (Medrol (Roger)) #21 tabs cephalexin 500 mg capsule 500 mg PO QID 7 days #28 caps 01/24/23 prednisone 10 mg tablets in a dose See Rx Instructions PO .COMPLEX 08/18/23 pack #21 tabs Allergies Allergy/AdvReac Type Severity Reaction Status Date / Time ibuprofen AdvReac Verified 09/06/21 08:15 [facility] Disclaimer: The information contained in this section may have been updated after the patient was seen, as this information can be updated by other users. Social History Smoking Status: Unknown if ever smoked alcohol intake: current substance use type: denies use current occupational status: employed Travel in the last 8 weeks: None household members: spouse housing: house current occupational exposures/hazards: No caffeine: Yes ROS Obtained: Yes Systems reviewed as appropriate & no additional complaints except as documented Physical Exam General General appearance: alert and in no apparent distress Head Head exam: atraumatic and normocephalic Eye Eye exam: Present PERRL and EOMI ENT ENT exam: Present mucous membranes moist Neck Neck exam: Present normal inspection Chest Chest inspection: Present normal inspection and symmetric chest wall rise Respiratory Respiratory exam: Present normal lung sounds bilaterally; Absent respiratory distress Cardiovascular Cardiovascular exam: Present regular rate and normal rhythm Abdominal Exam Abdominal exam: Present soft and tenderness (Mild left lower quadrant, mild right upper quadrant); Absent guarding or rebound Extremities Exam Extremities exam: Present normal inspection Neurological Exam Neurological exam: Present alert Psychiatric Psychiatric exam: Present normal aff
[2023-04-27 20:13] LABS: Basophils # 0.1 K/mm3 (0-0.2); Basophils % 0.4 % (0.1-2.0); Eosinophils # 0.2 K/mm3 (0.0-0.4); Eosinophils % 1.5 % (0.1-12.0); Hematocrit 40.5 % (37.0-47.0); Hemoglobin 13.9 g/dL (12.2-16.2); Lymphocytes # 0.9 K/mm3 (0.7-4.5); Lymphocytes % 6.7 % (10-50); Mean Corpuscular HGB Conc 34.3 g/dL (31.8-35.4); Mean Corpuscular Hemoglobin 29.8 pg (27.0-31.2); Mean Corpuscular Volume 86.9 fl (81-99); Mean Platelet Volume 7.9 fl (7.4-10.4); Monocytes # 0.2 K/mm3 (0.1-1.0); Monocytes % 1.6 % (1.7-9.3); Neutrophils # 11.4 K/mm3 (1.8-7.8); Neutrophils % 89.8 % (37.0-80.0); Platelet Count 315 K/mm3 (142-424); Red Blood Count 4.66 M/mm3 (4.20-5.40); White Blood Count 12.7 K/mm3 (4.8-10.8)
[2023-04-27 20:19] LABS: Chloride 102 mmol/L (98-107); Potassium 3.9 mmoL/L (3.5-5.1); Sodium 137 mmol/L (136-145)
[2023-04-27 20:21] LABS: Alanine Aminotransferase 33 U/L (12-78); Aspartate Amino Transferase 35 U/L (14-36); Bilirubin,Total 1.2 mg/dl (0.2-1.3); Blood Urea Nitrogen 16 mg/dl (7-17); Creatinine Clearance Estimated 116 mL/min (50-200); Estimated Glomerular Filt Rate 76 ml/min (>60); GFR (African American) 92 ML/MIN (>60)
[2023-04-27 20:22] VITALS: BP 134/76; PULSE 86; O2SAT 99
[2023-04-27 20:22] LABS: Albumin/Globulin Ratio 1.6 (1.1-1.8); Alkaline Phosphatase 94 U/L (38-126); Anion Gap 12.9 mEq/L (5-15); Calcium 9.4 mg/dl (8.4-10.2); Carbon Dioxide 26 mmol/L (22.0-30.0); Globulin 3.2 g/dL (1.3-3.2); Glucose 112 mg/dl (74-100); Lipase 96 U/L (23-300); Total Protein,Serum 8.2 g/dl (6.3-8.2)
[2023-04-27 20:30] VITALS: BP 136/76
[2023-04-27 20:31] LABS: MANUAL DIFFERENTIAL MANUAL DIFFERENTIAL (MANUAL DIFF)
[2023-04-27 20:39] LABS: Free T4 (Free Thyroxine) 1.01 ng/dl (0.78-2.19)
[2023-04-27 20:52] LABS: Thyroid Stimulating Hormone 1.39 uIU/mL (0.465-4.68)
[2023-04-27 21:00] LABS: Coronavirus 19, PCR Not Detected (NotDetected); Influenza A, PCR Not Detected (NotDetected); Influenza B, PCR Not Detected (NotDetected)
[2023-04-27 21:12] LABS: Microscopic, Urine URINE MICROSCOPIC (MICROSCOPIC)
[2023-04-27 21:20] LABS: Appearance,Urine CLEAR (Clear); Bilirubin,Urine Negative (Negative); Blood, Urine TRACE-I (Negative); Color,Urine YELLOW (Yellow); Glucose,Urine (UA) Negative (Negative); Ketones,Urine Negative (Negative); Leukocyte Esterase,Urine Negative (Negative); Nitrate,Urine Negative (Negative); Protein,Urine Negative (Negative); Specific Gravity, Urine <= 1.005 (1.005-1.030); Urobilinogen,Urine 0.2 EU/dl (0.2)
[2023-04-27 21:33] LABS: Squamous Epithelial Cell,Urine Occasional #/hpf (0-5)
[2023-04-27 21:41] VITALS: BP 138/80; PULSE 89; RESP 17; TEMP 36.7; O2SAT 98
[2023-04-27 21:56] LABS: Lymphocytes % 10 % (10-50); Monocytes % 1 % (2-9); Neutrophils % 89 % (42-76); Platelet Estimate Normal; RBC Morphology Normal; Total Cells Counted 100
== END 2023-04-27 21:42 | disposition home or self-care (01) ==
PROVIDERS: Emergency Provider Emergency Medicine; PCP Emergency Medicine
DX: R10.84 Generalized abdominal pain (principal); R19.7 Diarrhea, unspecified; R00.0 Tachycardia, unspecified; Z87.19 Personal history of other diseases of the digestive system
CPT/HCPCS: 74177; 80053; 81001; 83690; 84439; 84443; 85007; 85025; 87040; 87636; 96361; 96374; 96375; 99284; J0131; J2405; Q9967